=== PATIENT | male | born 1940 | race Caucasian/White ===

== ENCOUNTER 2022-02-26 12:15 | Outpatient (CLI) | payer MEDICARE, SELFPAY | END 2022-02-26 12:16 | disposition home or self-care (01) | LOC: AMB 03-03 21:38 | PROVIDERS: PCP Family Medicine; Visit Provider Family Medicine | DX: I49.9 Cardiac arrhythmia, unspecified (principal); R53.1 Weakness | CPT/HCPCS: A0425; A0427 ==

== ENCOUNTER 2023-03-19 15:30 | Outpatient (CLI) | payer MEDICARE, SELFPAY | END 2023-03-19 15:31 | disposition home or self-care (01) | LOC: AMB 03-20 09:36 | PROVIDERS: PCP Family Medicine; Visit Provider Family Medicine | DX: R53.1 Weakness (principal) | CPT/HCPCS: A0998 ==